=== PATIENT | female | born 1985 | race Caucasian/White ===

== ENCOUNTER → 2024-02-02 07:38 | Outpatient (REF) | payer MEDICARE, OTHER, SELFPAY | LOC: EMG 07:38 | PROVIDERS: ATTENDING PHYSICIAN Physician Assistant; FAMILY PHYSICIAN Family Medicine | DX: R20.0 Anesthesia of skin (principal); M54.16 Radiculopathy, lumbar region | CPT/HCPCS: 95886; 95909 ==

== ENCOUNTER 2024-02-18 21:49 | Emergency (ER) | payer MEDICARE, OTHER, SELFPAY ==
[2024-02-18 21:53] VITALS: BP 149/94
--- NOTE | 2024-02-18 22:15 | ED.GENMED ---
History of Present Illness
General
Chief Complaint: Blood Pressure Problem
Time Seen by Provider: 02/18/24 22:15
Travel History
Have you had any contact with someone who has COVID-19?: No
Do you have any symptoms of coronavirus? Fever > 100 degrees, chills, cough, shortness of breath, sore throat, loss of taste or smell, muscle aches, or headache?: No
History of Present Illness
History of Present Illness:
HPI: Patient came in by ambulance from home. She primarily was concerned of dizziness associated with nausea and had high blood pressure readings. She also had a brief episode of chest pain and felt cold earlier. She does frequently talk about
monitoring her blood pressure and frequently has blood pressure readings that are elevated in the 150-160 range. She does not like taking medication and prefers not to be on any medication for it. The dizziness seems to worsen when she moves her
head certain directions.
EXAM:
GENERAL: Well appearing in no distress
HEENT: Moist oral mucosa, no nystagmus
CARDIOVASCULAR: No murmurs, normal heart rate, regular rhythm, No chest wall tenderness
PULMONARY: No respiratory distress, breath sounds are clear and equal
ABDOMEN: Soft with no peritoneal signs, no tenderness
NEUROLOGIC: Excellent strength all extremities, no coordination deficits, normal finger-nose testing, no truncal ataxia
PSYCHIATRIC: Appropriate mental status, normal insight and judgement
EXTREMITIES: Nontender, no edema, moves all extremities equally
SKIN: No rash, no lesions
TIME OF INITIAL ENCOUNTER: 10:20 PM
NUMBER AND COMPLEXITY OF PROBLEMS ADDRESSED AT THE ENCOUNTER
� Chronic conditions affecting care: Untreated high blood pressure readings, hyperlipidemia, hypothyroidism
� Acute Exacerbation and/or Progression of Chronic Illness: This is an acute problem
� Differential Diagnosis includes: BPPV, poorly controlled/untreated high blood pressure, lab abnormality
AMOUNT AND/OR COMPLEXITY OF DATA TO BE REVIEWED AND ANALYZED
� I performed an independent evaluation of and my interpretation is:
EKG: Sinus 54, nonspecific ST abnormality, no significant change in comparison to 08/17/2003
CT:
X-rays:
Laboratory Studies: CBC normal, chemistries unremarkable, troponin negative
Other:
� Review of other/old records: I reviewed records�patient had colonoscopy in 2021 here
� Clinical information was obtained by an independent historian: I spoke to family at bedside
� Prescriptions/Medications Considered but not given: Offered and considered BP medication/treatment however she prefers to hold off at this time.
� Further testing considered but not performed:
RISK OF COMPLICATIONS AND/OR MORBIDITY OR MORTALITY OF PATIENT MANAGEMENT
� Social determinants of health affecting care: Lives at home, came in by ambulance
� Discussion with other providers:
� Escalation of care including admission/observation vs risk of discharge considered: Overall the patient is fairly well-appearing but is hypertensive. She does have nonfocal neurologic examination with no ataxia noted. On
reassessment at 11:30 PM, the patient still has a headache and tells me that she normally gets headache when her blood pressure is elevated. She is very reluctant to start any new medication. We talked about the possibility of positional vertigo.
She preferred to hold off on Rolando-Hallpike maneuver at this time.
Phy Exam
Physical Exam
Physical Exam:
See HPI
Course
Orders/Labs/Results
Orders:
Orders
02/18/24 22:27
Electrocardiogram (*1) Urgent
Reason for Study: Chest Pain
EKG- Treatment ONCE
02/18/24 22:37
Basic Metabolic Panel Urgent
Complete Blood Count/With Diff Urgent
Troponin I Urgent
Abnormal Lab Results
02/18/24
22:37
MCHC 37.2 H g/dL
(33.0-37.0)
Absolute Neuts (auto) 8.1 H 10^3/uL
(1.4-6.5)
Lymphocytes % 18.1 L %
(20.5-51.1)
02/18/24 22:37
02/18/24 22:37
Vital Signs
Initial and Last Documented VS:
Initial Vital Signs
Temp Pulse Resp BP Pulse Ox
98.6 F 67 16 149/94 99
02/18/24 21:53 02/18/24 21:53 02/18/24 21:53 02/18/24 21:53 02/18/24 21:53
Last Documented Vital Signs
Temp Pulse Resp BP Pulse Ox
98.6 F 56 9 155/98 96
02/18/24 21:53 02/18/24 23:15 02/18/24 23:15 02/18/24 23:00 02/18/24 23:15
*Critical Care Note
Total Time (30-74mins, 75-104mins- exclusive of procedures): Not Applicable
ED Attending Note
-
Portions of this chart may have been created with voice recognition software.� Occasional wrong word or��sound alike� substitutions may have occurred due to the inherent limitations of voice recognition software.
Discharge Plan
Departure
Patient Disposition: Home (Routine Discharge)
Date of Disposition: 02/18/24
Time of Disposition: 23:27
Patient with high blood pressure during this ER visit?: Yes
Discharge Problem:
Dizziness
Instructions: BLOOD PRESSURE
Prescriptions:
New
losartan 25 mg tablet
25 mg PO DAILY Qty: 30 0RF
Referrals:
Sarita Hernandez PA [Family Provider] -
Activity Restrictions/Additional Instructions:
Your blood pressure has been elevated here in the 149-160 range. I did send a prescription to your pharmacy for a very low-dose of losartan. If you end up taking this in the blood pressure remains elevated you could also double the dose by taking
2 of the pills at the same time each day. Follow-up your primary care doctor. Your basic blood work including complete blood cell count, electrolytes, kidney function and test for heart attack are all negative. Consider [id number] Benadryl
which may help dizziness.
Interventions
Interventions:
*Risk Screen - Suicide Last Done: 02/18/24 21:53
*General Assessment Last Done: 02/18/24 21:53
*Neglect/Abuse Screening Last Done: 02/18/24 21:53
ED- Fall Risk Assessment Last Done: 02/18/24 23:05
*ED COVID-19 Vaccine History Last Done: 02/18/24 21:53
ED- Cardiac Assessment Last Done: 02/18/24 23:05
ED- Neurological Assessment Last Done: 02/18/24 23:05
ED- Pulmonary Assessment Last Done: 02/18/24 23:05
Discharge Date and Time
Print Language: INDONESIAN
[2024-02-18 22:16] VITALS: BP 163/108
[2024-02-18 22:44] LABS: % Basophils 0.4 % (0-2); % Eosinophils 0.8 % (0-6); % Immature Granulocytes 0.2 % (0-0.5); % Lymphocytes 18.1 % (20.5-51.1); % Monocytes 5.3 % (1.7-9.3); % Neutrophils 75.2 % (42.2-75.2); Absolute Eosinophils 0.1 10^3/uL (0-0.7); Absolute Lymphocytes 1.9 10^3/uL (1.2-3.4); Absolute Monocytes 0.6 10^3/uL (0.1-0.6); Absolute Neutrophils 8.1 10^3/uL (1.4-6.5); Hematocrit 40.9 % (37.0-47.0); Hemoglobin 15.2 g/dL (12.0-16.0); Mean Corp Hgb Conc. 37.2 g/dL (33.0-37.0); Mean Corpuscular Hgb 30.7 pg (27.0-31.0); Mean Corpuscular Volume 82.6 fL (81.0-99.0); Mean Platelet Volume 9.1 fL (7.4-10.4); Nucleated Red Blood Cells % 0 %; Platelet Count 210 10^3/uL (130-400); Red Blood Cell Count 4.95 10^6/uL (4.20-5.40); White Blood Cell Count 10.7 10^3/uL (4.8-10.8)
[2024-02-18 22:57] LABS: Blood Urea Nitrogen 11 mg/dl (7-17); Calcium 9.9 mg/dl (8.4-10.2); Carbon Dioxide 26 mmol/L (22-30); Chloride 105 mmol/L (98-107); Glucose 97 mg/dl (70-99); Potassium 3.6 mmol/L (3.5-5.1); Sodium 135 mmol/L (135-145); eGFR > 60.00
[2024-02-18 23:00] VITALS: BP 155/98
[2024-02-18 23:09] LABS: Troponin I < 0.012 ng/ml
== END 2024-02-18 23:46 | disposition home or self-care (01) ==
LOC: EMR 21:49
PROVIDERS: EMERGENCY PHYSICIAN Emergency Medicine; FAMILY PHYSICIAN Family Medicine
DX: R42 Dizziness and giddiness (principal)
CPT/HCPCS: 99283; 80048; 84484; 85025; 93005

== ENCOUNTER → 2024-05-10 08:07 | Outpatient (REF) | payer MEDICARE, OTHER, SELFPAY | LOC: RCS 08:07 | PROVIDERS: ATTENDING PHYSICIAN Family Medicine | DX: R01.1 Cardiac murmur, unspecified (principal) | CPT/HCPCS: 93306 ==

== ENCOUNTER → 2024-06-12 06:33 | Outpatient (REF) | payer MEDICARE, OTHER, SELFPAY | LOC: RAD 06:33 | PROVIDERS: ATTENDING PHYSICIAN Family Medicine | DX: I83.899 Varicose veins of unspecified lower extremity with other complications (principal); M79.662 Pain in left lower leg; M79.661 Pain in right lower leg | CPT/HCPCS: 93970 ==